=== PATIENT | female | born 1980 | race African-American/Black ===

== ENCOUNTER 2016-09-22 06:25 | Emergency (ER) | payer SELFPAY ==
[~2016-09-22] VITALS: Ht 170.2 cm; Wt 88.4 kg
[~2016-09-22 06:25] MED LIST: CETIRIZINE HCL10 M2 PO; CLARITIN10 MG; COLACE100 MG PO; FIORICET WI1 CAPSULE PO; HYDROCHLOROTHIA25 MG PO; MOTRIN800 MG PO; NAPROSYN500 MG PO; NOHOMEMEDS; OMEPRAZOLE20 MG PO; PERCOCET 5/31 TABLET PO; ULTRAM50 MG PO; VALIUM5 MG PO; ZOFRAN4 MG PO
[2016-09-22 08:04] LABS: ADD MIUA? YES; BILIRUBIN NEGATIVE; BLOOD MODERATE; COLOR AMBER ((YELLOW)); GLUCOSE (STRIP) NEGATIVE; KETONES NEGATIVE; LEUKOCYTES TRACE; NITRITE NEGATIVE; PROTEIN (STRIP) 100; SPECIFIC GRAVITY 1.026 (1.000-1.030); UROBILINOGEN 0.2 MG/DL (0.2-1.0)
[2016-09-22 08:13] LABS: BACTERIA RARE /HPF; CALCIUM OXALATE CRYSTALS 3+ /HPF; EPITHELIAL CELLS 4+ /HPF; MUCUS 3+ /LPF; RED BLOOD CELLS TNTC /HPF (0-5); UCUL ADDED? YES; WHITE BLOOD CELLS 15-20 /HPF (0-5)
[2016-09-22] MEDS ORDERED: KEFLEX250 MG/5 M PO (09:02)
[2016-09-22 09:09] VITALS: BP 123/86
== END 2016-09-22 09:11 | disposition home or self-care (01) ==
LOC: EME 06:25
PROVIDERS: Emergency Medicine
DX: N30.91 Cystitis, unspecified with hematuria (principal)
CPT/HCPCS: 81003; 87077; 87086; 87186; 99281; 99284

== ENCOUNTER 2017-09-08 17:11 | Emergency (ER) | payer BC ==
[~2017-09-08] VITALS: Ht 157.5 cm; Wt 84.8 kg
[~2017-09-08 17:11] MED LIST changes: +KEFLEX250 MG/5 M PO
[2017-09-08 19:12] LABS: HEMATOCRIT 46.2 % (36.0-46.0); HEMOGLOBIN 15.8 G/DL (11.9-15.5); MCH 30.6 PG (29.0-34.0); MCHC 34.2 G/DL (30.0-36.0); MCV 89.4 FL (83-99); PLATELET COUNT 295 K/uL (156-360); RBC DIS.WIDTH-CV 12.2 % (11.8-14.6); RBC DIS.WIDTH-SD 40.6 % (39-53); RED BLOOD COUNT 5.17 M/uL (3.80-5.20); WHITE BLOOD COUNT 9.4 K/uL (4.1-10.2)
[2017-09-08 19:23] LABS: CHLORIDE 107 mEq/L (99-109); POTASSIUM 4.1 mEq/L (3.7-5.4); SODIUM 142 mEq/L (136-147)
[2017-09-08 19:24] LABS: GLUCOSE 90 mg/dL (70-99)
[2017-09-08 19:28] LABS: CREATININE 0.9 mg/dL (0.6-1.3); GFR ESTIMATE (CALCULATED) > 59 mL/min/
[2017-09-08 19:29] LABS: UREA NITROGEN (BUN) 7 mg/dL (9-23)
[2017-09-08] MEDS ORDERED: ROBAXIN750 MG PO (21:34)
[2017-09-08 22:02] VITALS: BP 152/97
== END 2017-09-08 22:02 | disposition home or self-care (01) ==
LOC: EME 17:11
DX: M62.838 Other muscle spasm (principal); M54.2 Cervicalgia; M79.602 Pain in left arm; R51 Headache; R07.89 Other chest pain; Z87.891 Personal history of nicotine dependence
CPT/HCPCS: 70450; 71046; 80048; 85027; 93005; J1885